=== PATIENT | female | born 1985 | race Hispanic/Latino ===

== ENCOUNTER 2024-03-01 15:45 | Outpatient (CLI) | payer OTHER | END 2024-03-01 15:46 | disposition home or self-care (01) | LOC: BICULT 15:45 | PROVIDERS: ATTEND Family Medicine | DX: O44.03 Complete placenta previa NOS or without hemorrhage, third trimester (principal); Z3A.32 32 weeks gestation of pregnancy | CPT/HCPCS: 76815 ==